=== PATIENT | female | born 1945 | race Caucasian/White ===

== ENCOUNTER 2022-12-23 09:40 | Day surgery (SDC) | payer OTHER, BC ==
[2022-12-22 10:48] VITALS: BMI 25.7
[2022-12-23] MEDS ORDERED: VANCOMYCIN 1,000 MG VIAL (RESTRICTED TO ID ONLY) ONE (11:15)
[2022-12-23] MEDS ORDERED: ceFAZolin SODIUM 1 GM VIAL ONE ×2 (11:15→13:52)
[2022-12-23] MEDS ORDERED: GENTAMICIN SO4 80 MG/2 ML VIAL ONE (11:15)
[2022-12-23] MEDS ORDERED: BUPIVACAINE HCL/EPINEPHRINE/PF 30 ML VIAL IJ ONE (11:16)
[2022-12-23] MEDS ORDERED: LIDOCAINE HCL/PF 2% SDV 5ML VIAL ONE (13:33)
[2022-12-23] MEDS ORDERED: PROPOFOL 20 ML ONE (13:34)
[2022-12-23] MEDS ORDERED: MIDAZOLAM HCL 2 MG/2 ML SINGLE DOSE VIAL ONE (13:34)
[2022-12-23] MEDS ORDERED: ONDANSETRON 4 MG/2 ML VIAL ONE (14:00)
[2022-12-23] MEDS ORDERED: DEXAMETHASONE SOD PHOSPHATE 4 MG/1 ML VIAL ONE (14:00)
[2022-12-23] MEDS ORDERED: BUPIVACAINE 0.25% /EPI 1:200,000 10 ML VIAL NR ONE (14:19)
[2022-12-23] MEDS ORDERED: oxyCODONE HCL 5 MG TABLET PO PRN (14:48)
[2022-12-23] MEDS ORDERED: ONDANSETRON 4 MG/2 ML VIAL IVPUSH PRN (14:48)
[2022-12-23] MEDS ORDERED: PROMETHAZINE HCL 25 MG/1 ML VIAL IVPB PRN (14:48)
[2022-12-23] MEDS ORDERED: ACETAMINOPHEN 325 MG TABLET (FP) PO ONE ×2 (15:30→15:54)
[2022-12-23] MEDS ORDERED: ACETAMINOPHEN 325 MG TABLET (FP) ONE (15:33)
[2022-12-23 16:12] VITALS: RESP 16; TEMP 97.1
[2022-12-23 16:51] VITALS: BP 146/74; PULSE 74
== END 2022-12-23 16:45 | disposition home or self-care (01) ==
LOC: FASU 09:40
PROVIDERS: ATTEND Plastic Surgery
PROC: 0HRT0JZ Replacement of Right Breast with Synthetic Substitute, Open Approach (ICD-10-PCS; 2022-12-23)
PROC: 0HPT0JZ Removal of Synthetic Substitute from Right Breast, Open Approach (ICD-10-PCS; principal; 2022-12-23 13:59)
DX: Z85.3 Personal history of malignant neoplasm of breast (principal); Z90.11 Acquired absence of right breast and nipple; N65.0 Deformity of reconstructed breast
CPT/HCPCS: 19342; 19371; L8600; 88300-TC; 88304-TC; 94760